=== PATIENT | male | born 1970 | race African-American/Black ===

== ENCOUNTER 2018-07-20 16:05 | Inpatient (IN) | payer OTHER ==
[2018-07-20 17:52] VITALS: BMI 30.7
--- NOTE | 2018-07-20 18:23 | HP ---
CIWA Score - CIWA Score Nausea/Vomitin-No Nausea/No Vomiting Muscle Tremors: 3 Anxiety: 2 Agitation: 3 Paroxysmal Sweats: 2 Orientation: 0-Oriented Tacttile Disturbances: 1-Very Mild Itch/Numbness Auditory Disturbances: 0-None Visual Disturbances: 1-Very Mild Sensitivity Headache: 0-None Present CIWA-Ar Total Score: 12 Admission ROS BHS - HPI Chief Complaint: "I need help with my A LOT of alcohol use" alcohol and benzo withdrawal symptoms Allergies/Adverse Reactions: Allergies Allergy/AdvReac Type Severity Reaction Status Date / Time No Known Allergies Allergy Verified 06/24/12 18:51 History of Present Illness: 47 yo male with hx nicotine, alcohol, klonopin, marijuana dependence is here seeking detox. Patient reports on going heroin( nasal) use, although linked to [facility]. [facility] [phone] on methadone 120 mg, last medicated today. Last detox three months ago [facility]. Reports the following PMHX: Asthma, DM II , HTN, bipolar and PTSD. Denies suicidal / homicidal ideation. Reports hx of suicide attempt at 21 yo while in residential. Denies hx of DTS, seizures or blackouts. Longest period of sobriety 11 years. Exam Limitations: No Limitations - Ebola screening Have you traveled outside of the country in the last 21 days: No (N) Have you had contact with anyone from an Ebola affected area: No Have you been sick,other than usual withdrawal symptoms: No Do you have a fever: No - Review of Systems Constitutional: Chills, Loss of Appetite, Changes in sleep EENT: reports: No Symptoms Reported Respiratory: reports: Cough Cardiac: reports: No Symptoms Reported GI: reports: Poor Appetite, Poor Fluid Intake, Other (hx of pancreatitis 2016) : reports: No Symptoms Reported Musculoskeletal: reports: No Symptoms Reported Integumentary: reports: No Symptoms Reported Neuro: reports: Weakness Endocrine: reports: Increased Thirst Hematology: reports: No Symptoms Reported Psychiatric: reports: Orientated x3, Anxious Other Systems: Reviewed and Negative Patient History - Patient Medical History Hx Anemia: No Hx Asthma: Yes (albuterol prn) Hx Chronic Obstructive Pulmonary Disease (COPD): No Hx Cancer: No Hx Cardiac Disorders: No Hx Congestive Heart Failure: No Hx Hypertension: Yes Hx Hypercholesterolemia: No Hx Pacemaker: No HX Cerebrovascular Accident: No Hx Seizures: No Hx Dementia: No Hx Diabetes: Yes (on metformin ) Hx Gastrointestinal Disorders: No Hx Liver Disease: No Hx Genitourinary Disorders: No Hx Sexually Transmitted Disorders: No Hx Renal Disease (ESRD): No Hx Thyroid Disease: No Hx Human Immunodeficiency Virus (HIV): No (last tested one year ago, neg results , declines testing at this time ) Hx Hepatitis C: No Hx Depression: No Hx Suicide Attempt: Yes (21 yo while in residential ) Hx Bipolar Disorder: Yes Hx Schizophrenia: Yes - Patient Surgical History Past Surgical History: No Hx Neurologic Surgery: No Hx Cataract Extraction: No Hx Cardiac Surgery: No Hx Lung Surgery: No Hx Breast Surgery: No Hx Breast Biopsy: No Hx Abdominal Surgery: No Hx Appendectomy: No Hx Cholecystectomy: No Hx Genitourinary Surgery: No Hx Section: No Hx Orthopedic Surgery: No Anesthesia Reaction: No - PPD History Previous Implant?: No (PPD+ 1989 tx INH and Rifampin) Documented Results: Positive w/o proof Implanted On Prior [facility] Admission?: No PPD to be Administered?: No - Smoking Cessation Smoking history: Current every day smoker Have you smoked in the past 12 months: Yes Aproximately how many cigarettes per day: 2 Hx Chewing Tobacco Use: No Initiated information on smoking cessation: Yes 'Breaking Loose' booklet given: 07/20/18 - Substance & Tx. History Hx Alcohol Use: Yes Hx Substance Use: Yes Substance Use Type: Alcohol, Marijuana, Tranquilizers Hx Substance Use Treatment: Yes ([facility] three months ago 04/2018) - Substances Abused Alcohol Route: Oral Frequency: Daily Amount used: 3 pints vodka Age of first use: 12 Date of Last Use: 07/20/18 Marijuana/Hashish Route: Smoking Frequency: 1-3 times last 30 days Amount used: 1 joint Age of first use: 13 Date of Last Use: 07/17/18 Benzodiazepine (Klonopin) Route: Oral Frequency: Daily Amount used: 1 -2 mg Age of first use: 47 Date of Last Use: 07/18/18 Family Disease History - Family Disease History Family Disease History: CA: Father ( Lung Cancer ) Admission Physical Exam BHS - Vital Signs Vital Signs: Vital Signs - 24 hr 07/20/18 17:48 Temperature 98.1 F Pulse Rate 70 Respiratory 18 Rate Blood Pressure 124/69 - Physical General Appearance: Yes: Disheveled, Mild Distress, Alcohol on Breath, Obese, Tremorous, Sweating, Anxious HEENTM: Yes: EOMI, Hearing grossly Normal, Normal ENT Inspection, Normocephalic , Normal Voice, MERLIN, Pharynx Normal, Tm's normal, Other (cheilithis) Respiratory: Yes: Chest Non-Tender, Lungs Clear, Normal Breath Sounds, No Respiratory Distress, No Accessory Muscle Use Neck: Yes: Within Normal Limits Breast: Yes: Breast Exam Deferred Cardiology: Yes: Regular Rhythm, Regular Rate Abdominal: Yes: Normal Bowel Sounds, Non Tender, Soft, Protuberent Genitourinary: Yes: Within Normal Limits Back: Yes: Normal Inspection Musculoskeletal: Yes: full range of Motion, Gait Steady, Pelvis Stable Extremities: Yes: Normal Capillary Refill, Normal Inspection, Normal Range of Motion, Tremors 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 NML intact, Fully Oriented, Alert, Motor Strength 5/5, Depressed Affect Integumentary: Yes: Normal Color, Warm, Moist Lymphatic: Yes: Within Normal Limits - Diagnostic (1) Alcohol dependence with withdrawal Current Visit: Yes Status: Acute Qualifiers: Complication of substance-induced condition: uncomplicated Qualified Code(s ): F10.230 - Alcohol dependence with withdrawal, uncomplicated (2) Sedative, hypnotic or anxiolytic dependence with withdrawal, uncomplicated Current Visit: Yes Status: Acute (3) Diabetes mellitus type 2, noninsulin dependent Current Visit: Yes Status: Chronic (4) Essential (primary) hypertension Current Visit: Yes Status: Chronic Comment: Reports non-adherent with medciations (5) Nicotine dependence Current Visit: Yes Status: Acute Qualifiers: Nicotine product type: cigarettes (6) Asthma Current Visit: Yes Status: Acute Qualifiers: Asthma severity: mild Asthma persistence: unspecified Asthma complication type: uncomplicated Qualified Code(s): J45.909 - Unspecified asthma, uncomplicated Cleared for Admission S - Detox or Rehab [facility] Level of Care: Medically Managed Detox Regimen/Protocol: Librium [facility] Breath Alcohol Content Breath Alcohol Content: 0.176 Urine Drug Screen - Results Drug Screen Negative: Yes Urine Drug Screen Results: THC-Marijuana, BZO-Benzodiazepines, MTD-Methadone
[2018-07-20] MEDS ORDERED: MAGNESIUM CITRATE 300 ML BOTTLE PO PRN (18:35)
[2018-07-20] MEDS ORDERED: chlordiazePOXIDE HCL 25 MG CAPSULE PO PRN (18:35)
[2018-07-20] MEDS ORDERED: LOPERAMIDE HCL 2 MG CAPSULE PO PRN (18:35)
[2018-07-20] MEDS ORDERED: P-EPHED 60MG/TRIPROLIDI 2.5MG TABLET PO PRN (18:35)
[2018-07-20] MEDS ORDERED: IBUPROFEN 400 MG TABLET (FP) PO PRN (18:35)
[2018-07-20] MEDS ORDERED: MAG HYDROX/AL HYDROX/SIMETH 30 ML UNIT-DOSE CUP PO PRN (18:35)
[2018-07-20] MEDS ORDERED: guaiFENesin/D-METHORPHAN HB 10 ML UNIT-DOSE CUPS PO PRN (18:35)
[2018-07-20] MEDS ORDERED: MAGNESIUM HYDROX 2400MG/30ML ORAL SUSPENSION 30 ML CUP PO PRN (18:35)
[2018-07-20] MEDS ORDERED: MENTHOL/PHENOL 1 EACH UD MM PRN (18:35)
[2018-07-20] MEDS ORDERED: ACETAMINOPHEN 325 MG TABLET (FP) PO PRN (18:35)
[2018-07-20] MEDS ORDERED: chlordiazePOXIDE HCL 25 MG CAPSULE PO ONE (18:40)
[2018-07-20] MEDS ORDERED: hydrOXYzine PAMOATE 50 MG CAPSULE (FP) PO PRN (18:40)
[2018-07-20] MEDS ORDERED: NICOTINE POLACRILEX 2 MG GUM BUC PRN (18:40)
[2018-07-20] MEDS ORDERED: MELATONIN 5 MG TABLETS PO PRN (22:00)
[2018-07-20] MEDS ORDERED: metFORMIN HCL 500 MG TABLET (FP) PO SCH (22:00)
[2018-07-20] MEDS: THIAMINE HCL 100 MG TABLET (FP) PO SCH (22:14)
[2018-07-20] MEDS: chlordiazePOXIDE HCL 25 MG CAPSULE PO SCH (22:14)
[2018-07-21 00:20] LABS: URINE APPEARANCE CLEAR; URINE BILIRUBIN NEGATIVE (<2.0 mg/dL); URINE COLOR YELLOW; URINE GLUCOSE (UA) NEGATIVE (NEGATIVE); URINE KETONE NEGATIVE (NEGATIVE); URINE LEUK ESTERASE TRACE (NEGATIVE); URINE NITRITE NEGATIVE (NEGATIVE); URINE PROTEIN NEGATIVE (NEGATIVE); URINE UROBILINOGEN 4.0 E.U/dl mg/dL (0.2-1.0)
[2018-07-21 00:27] LABS: EPI CELLS RARE /HPF (FEW); URINE MUCUS RARE
[2018-07-21] MEDS: chlordiazePOXIDE HCL 25 MG CAPSULE PO SCH ×4 (05:11→22:18)
[2018-07-21] MEDS: metFORMIN HCL 500 MG TABLET (FP) PO SCH ×2 (08:11→17:13)
[2018-07-21] MEDS: METHADONE HCL 40 MG DISPERSABLE TABLET PO SCH (10:06)
[2018-07-21] MEDS: NICOTINE 14 MG/24 HOURS TOPICAL PATCH TD SCH (10:07)
[2018-07-21] MEDS: PRENATAL VITAMINS W/ FOLIC ACID TABLET (FP) PO SCH (10:08)
[2018-07-21 10:27] LABS: HEMATOCRIT 39.4 % (35.4-49); HEMOGLOBIN 12.6 GM/dL (11.7-16.9); MCH 27.7 pg (25.7-33.7); MCHC 32.1 g/dl (32.0-35.9); MEAN CELL VOLUME 86.3 fl (80-96); MEAN PLT VOLUME 9.3 fl (7.5-11.1); PLATELET COUNT 233 K/MM3 (134-434); RBC 4.56 M/mm3 (4.00-5.60); RDW 16.7 % (11.9-15.9)
--- NOTE | 2018-07-21 10:51 | PN ---
S CIWA - CIWA Score Nausea/Vomitin Muscle Tremors: 1-None Visible, but [place] Anxiety: 3 Agitation: 1-Slight > Activity Paroxysmal Sweats: No Perspiration Orientation: 0-Oriented Tacttile Disturbances: 0-None Auditory Disturbances: 0-None Visual Disturbances: 0-None Headache: 3-Moderate CIWA-Ar Total Score: 10 BHS Progress Note (SOAP) Subjective: PATIENT IN DETOX FOR ETOH/BZO WITHDRAWAL SYMPTOMS. PATIENT C/O ANXIETY, NAUSEA/ DIARRHEA (ON AND OFF) AND HEADACHE. Objective: 07/21/18 10:48 Vital Signs Temperature 98.3 F 07/21/18 09:46 Pulse Rate 66 07/21/18 09:46 Respiratory Rate 18 07/21/18 09:46 Blood Pressure 137/93 07/21/18 09:46 O2 Sat by Pulse Oximetry (%) Laboratory Tests 07/20/18 07/20/18 07/21/18 00:00 19:39 05:11 WBC RBC Hgb Hct MCV MCH MCHC RDW Plt Count MPV POC Glucometer 111 90 Urine Color Yellow Urine Appearance Clear Urine pH 5.0 Ur Specific [place] 1.017 Urine Protein Negative Urine Glucose (UA) Negative Urine Ketones Negative Urine Blood 1+ H Urine Nitrite Negative Urine Bilirubin Negative Urine Urobilinogen 4.0 e.u/dl Ur Leukocyte Esterase Trace Urine WBC (Auto) 2 Urine RBC (Auto) 2 Ur Epithelial Cells Rare Urine Mucus Rare 07/21/18 07:00 WBC 5.0 RBC 4.56 Hgb 12.6 Hct 39.4 MCV 86.3 MCH 27.7 D MCHC 32.1 RDW 16.7 H Plt Count 233 MPV 9.3 POC Glucometer Urine Color Urine Appearance Urine pH Ur Specific [place] Urine Protein Urine Glucose (UA) Urine Ketones Urine Blood Urine Nitrite Urine Bilirubin Urine Urobilinogen Ur Leukocyte Esterase Urine WBC (Auto) Urine RBC (Auto) Ur Epithelial Cells Urine Mucus ALERT AND ORIENTED AMB AD LAUREN SKIN WARM AND DRY ANXIOUS BUT CALM Assessment: 07/21/18 10:49 ETOH WITHDRAWAL SYMPTOMS Plan: CONTINUE DETOX ORDERED ORAL FLUIDS ENCOURAGED CONTINUE APAP/MOTRIN PRN FOR HEADACHE REPEAT UA CONTINUE TO MONITOR CLINICALLY
[2018-07-21 11:16] LABS: ALBUMIN 3.7 g/dl (3.4-5.0); ALK PHOS 100 U/L (45-117); ANION GAP 10 MMOL/L (8-16); BILIRUBIN,TOTAL 0.5 mg/dL (0.2-1); BLOOD UREA NITROGEN 18 mg/dL (7-18); CALCIUM 8.6 mg/dL (8.5-10.1); CHLORIDE 102 mmol/L (98-107); CO2 28 mmol/L (21-32); CREATININE 0.8 mg/dL (0.55-1.3); GLUCOSE,RANDOM 129 mg/dL (74-106); POTASSIUM 4.3 mmol/L (3.5-5.1); SGOT/AST 19 U/L (15-37); SGPT/ALT 29 U/L (13-61); SODIUM 140 mmol/L (136-145); TOT PROT 7.3 g/dl (6.4-8.2)
--- NOTE | 2018-07-21 11:59 | EKG ---
Test Reason : Blood Pressure : / mmHG Vent. Rate : 064 BPM Atrial Rate : 064 BPM P-R Int : 176 ms QRS Dur : 090 ms QT Int : 428 ms P-R-T Axes : 045 038 032 degrees QTc Int : 441 ms POOR DATA QUALITY, INTERPRETATION MAY BE ADVERSELY AFFECTED NORMAL SINUS RHYTHM NORMAL ECG NO PREVIOUS ECGS AVAILABLE Confirmed by THIEN CHAVIRA MD ([id number]) on 07/21/2018 11:59:17 AM Referred By: Confirmed By:THIEN CHAVIRA MD
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
--- NOTE | 2018-07-21 21:40 | PN ---
BHS Progress Note Note: 150/90 p53 asymtomatic due for librium at 10pm increase PO fluids continue to monitor
[2018-07-21] MEDS: THIAMINE HCL 100 MG TABLET (FP) PO SCH (22:18)
[2018-07-21 23:09] LABS: URINE APPEARANCE CLEAR; URINE BILIRUBIN NEGATIVE (<2.0 mg/dL); URINE COLOR LTYELLOW; URINE GLUCOSE (UA) NEGATIVE (NEGATIVE); URINE KETONE NEGATIVE (NEGATIVE); URINE LEUK ESTERASE NEGATIVE (NEGATIVE); URINE NITRITE NEGATIVE (NEGATIVE); URINE PROTEIN NEGATIVE (NEGATIVE); URINE UROBILINOGEN NEGATIVE mg/dL (0.2-1.0)
[2018-07-21 23:13] LABS: EPI CELLS RARE /HPF (FEW)
[2018-07-22] MEDS: chlordiazePOXIDE HCL 25 MG CAPSULE PO SCH ×3 (05:23→17:29)
[2018-07-22] MEDS: METHADONE HCL 40 MG DISPERSABLE TABLET PO SCH (05:23)
[2018-07-22] MEDS: metFORMIN HCL 500 MG TABLET (FP) PO SCH ×2 (06:16→17:28)
[2018-07-22] MEDS: PRENATAL VITAMINS W/ FOLIC ACID TABLET (FP) PO SCH (10:06)
[2018-07-22] MEDS: NICOTINE 14 MG/24 HOURS TOPICAL PATCH TD SCH (10:06)
--- NOTE | 2018-07-22 11:14 | PN ---
S CIWA - CIWA Score Nausea/Vomitin-No Nausea/No Vomiting Muscle Tremors: None Anxiety: 3 Agitation: 3 Paroxysmal Sweats: 2 Orientation: 0-Oriented Tacttile Disturbances: 0-None Auditory Disturbances: 0-None Visual Disturbances: 0-None Headache: 0-None Present CIWA-Ar Total Score: 8 BHS Progress Note (SOAP) Subjective: PATIENT FEELING ANXIOUS AND IRRITABLE WAITING TO SPEAK TO [employer]. Objective: 07/22/18 11:11 Laboratory Tests 07/20/18 07/20/18 07/21/18 00:00 19:39 05:11 WBC RBC Hgb Hct MCV MCH MCHC RDW Plt Count MPV Sodium Potassium Chloride Carbon Dioxide Anion Gap BUN Creatinine Creat Clearance w eGFR POC Glucometer 111 90 Random Glucose Calcium Total Bilirubin AST ALT Alkaline Phosphatase Total Protein Albumin Urine Color Yellow Urine Appearance Clear Urine pH 5.0 Ur Specific [place] 1.017 Urine Protein Negative Urine Glucose (UA) Negative Urine Ketones Negative Urine Blood 1+ H Urine Nitrite Negative Urine Bilirubin Negative Urine Urobilinogen 4.0 e.u/dl Ur Leukocyte Esterase Trace Urine WBC (Auto) 2 Urine RBC (Auto) 2 Ur Epithelial Cells Rare Urine Mucus Rare RPR Titer 07/21/18 07/21/18 07/21/18 07:00 07:00 07:00 WBC 5.0 RBC 4.56 Hgb 12.6 Hct 39.4 MCV 86.3 MCH 27.7 D MCHC 32.1 RDW 16.7 H Plt Count 233 MPV 9.3 Sodium 140 Potassium 4.3 Chloride 102 Carbon Dioxide 28 Anion Gap 10 BUN 18 Creatinine 0.8 Creat Clearance w eGFR > 60 POC Glucometer Random Glucose 129 H Calcium 8.6 Total Bilirubin 0.5 AST 19 ALT 29 Alkaline Phosphatase 100 Total Protein 7.3 Albumin 3.7 Urine Color Urine Appearance Urine pH Ur Specific [place] Urine Protein Urine Glucose (UA) Urine Ketones Urine Blood Urine Nitrite Urine Bilirubin Urine Urobilinogen Ur Leukocyte Esterase Urine WBC (Auto) Urine RBC (Auto) Ur Epithelial Cells Urine Mucus RPR Titer Nonreactive 07/21/18 07/21/18 07/22/18 16:16 17:24 05:23 WBC RBC Hgb Hct MCV MCH MCHC RDW Plt Count MPV Sodium Potassium Chloride Carbon Dioxide Anion Gap BUN Creatinine Creat Clearance w eGFR POC Glucometer 132 114 Random Glucose Calcium Total Bilirubin AST ALT Alkaline Phosphatase Total Protein Albumin Urine Color Ltyellow Urine Appearance Clear Urine pH 5.0 Ur Specific [place] 1.014 Urine Protein Negative Urine Glucose (UA) Negative Urine Ketones Negative Urine Blood 1+ H Urine Nitrite Negative Urine Bilirubin Negative Urine Urobilinogen Negative Ur Leukocyte Esterase Negative Urine WBC (Auto) 1 Urine RBC (Auto) <1 Ur Epithelial Cells Rare Urine Mucus RPR Titer Vital Signs Temperature 96.9 F L 07/22/18 10:16 Pulse Rate 53 L 07/22/18 10:16 Respiratory Rate 20 07/22/18 10:16 Blood Pressure 152/95 07/22/18 10:16 O2 Sat by Pulse Oximetry (%) 07/22/18 11:11 SKIN + WARM AND VISIBLE MOISTURE ALERT AND ORIENTED AMB AD LAUREN NO EDEMA ANXIOUS/IRRITABLE Assessment: 07/22/18 11:12 HTN HISTORY OF BIPOLAR DISORDER Plan: CONTINUE DETOX ENCOURAGE ORAL FLUIDS PSYCH CONSULT PATIENT REQUESTED FOR HIS SEROQUEL MEDICATION FOR H/O BIPOLAR DISORDER WILL ORDER CLONIDINE 0.1MG PO DAILY FOR ELEVATED BP CONTINUE TO MONITOR
[2018-07-22] MEDS: cloNIDine HCL 0.1 MG TABLET PO SCH (11:35)
[2018-07-22] MEDS ORDERED: ALBUTEROL SO4 8 GM HFA INHALER IH SCH (14:30)
[2018-07-22] MEDS ORDERED: ALBUTEROL SO4 8 GM HFA INHALER IH PRN (14:41)
--- NOTE | 2018-07-22 17:36 | PN ---
Psychiatric Progress Note Vital Signs: Vital Signs Period Temp Pulse Resp BP Sys/Osman Pulse Ox Last 24 Hr 96.9 F-98.3 F 53-59 16-20 131-152/86-95 Date of Session: 07/22/18 Chief Complaint:: " i can't sleep." HPI: Patient admitted to for alcohol, benzodiazepine and marijuana dependence. ROS: Past history of pancreatitis,hypertension,diabetes mellitus,bronchial asthma and obesity. Current Medications: Active Medications Generic Name Dose Route Start Last Admin Trade Name Freq PRN Reason Stop Dose Admin Acetaminophen 650 mg 07/20/18 18:35 Tylenol - PO Q4H PRN FEVER Al Hydroxide/Mg Hydroxide 30 ml 07/20/18 18:35 Mylanta Oral Suspension - PO Q6H PRN DYSPEPSIA Albuterol Sulfate 2 puff 07/22/18 14:41 Ventolin Hfa Inhaler - IH Q4H PRN WHEEZING Budesonide/Formoterol Fumarate 2 puff 07/22/18 22:00 Symbicort 80/4.5mcg - IH BID BRIANDA Chlordiazepoxide HCl 15 mg 07/22/18 23:00 Librium - PO 07/23/18 17:01 V2D-PNT BRIANDA Chlordiazepoxide HCl 25 mg 07/20/18 18:35 Librium - PO 07/23/18 18:34 Q4H PRN WITHDRAWAL(CONT SUBST) Chlordiazepoxide HCl 10 mg 07/23/18 23:00 Librium - PO 07/24/18 17:01 D9B-LIL BRIANDA Clonidine 0.1 mg 07/22/18 10:30 07/22/18 11:35 Catapres - PO 0.1 mg DAILY BRIANDA Administration Eucalyptus/Menthol/Phenol/Sorbitol 1 each 07/20/18 18:35 Cepastat Lozenge - MM Q4H PRN SORE THROAT Guaifenesin 10 ml 07/20/18 18:35 Robitussin Dm - PO Q6H PRN COUGH Hydroxyzine Pamoate 50 mg 07/20/18 18:40 Vistaril - PO Q4H PRN AGITATION Ibuprofen 400 mg 07/20/18 18:35 Motrin - PO Q6H PRN PAIN LEVEL 4-6 Loperamide HCl 4 mg 07/20/18 18:35 Imodium - PO Q6H PRN DIARRHEA Magnesium Citrate 300 ml 07/20/18 18:35 Citroma - PO Q48H PRN CONSTIPATION Magnesium Hydroxide 30 ml 07/20/18 18:35 Milk Of Magnesia - PO DAILY PRN CONSTIPATION Melatonin 5 mg 07/20/18 22:00 Melatonin PO HS PRN INSOMNIA Metformin HCl 500 mg 07/21/18 07:00 07/22/18 17:28 Glucophage - PO 500 mg BID@0700,1630 BRIANDA Administration Methadone HCl 120 mg 07/21/18 10:00 07/22/18 05:23 Dolophine - PO 07/25/18 09:44 120 mg DAILY@0600 BRIANDA Administration Nicotine 14 mg 07/21/18 10:00 07/22/18 10:06 Nicoderm Patch - TD Not Given DAILY BRIANDA Nicotine Polacrilex 2 mg 07/20/18 18:40 Nicorette Gum - BUC Q2H PRN NICOTINE REPLACEMENT RX Multivit/Folic Acid/Iron 1 tab 07/21/18 10:00 07/22/18 10:06 Vitamins ([facility]) - PO 1 tab DAILY BRIANDA Administration Pseudoephedrine/Triprolidine 1 combo 07/20/18 18:35 Actifed - PO TID PRN NASAL CONGESTION Thiamine HCl 100 mg 07/20/18 22:00 07/21/18 22:18 Vitamin B1 - PO 100 mg HS BRIANDA Administration Medication(s) Change(s): Yes. Will add Seroquel 50mg qhs Current Side Effect: No Lab tests ordered: No Lab tests reviewed: Yes Provider note:: Chart reviewed. Dr. Steen noted read and appreciated. Patient requesting seroquel for insomnia. As per Dr. Steen note patient has not accepted seroquel in 3-4 months. Will order seroquel 50mg qhs. Psychoeducation and sleep hygiene discussed. Benefits and side effects discussed. Verbal consent given. Total face to face time:: 25 Mental Status Exam - Mental Status Exam Alert and Oriented to: Time, Place, Person Cognitive Function: Good Patient Appearance: Well Groomed Mood: Hopeful Affect: Appropriate, Mood Congruent Patient Behavior: Appropriate, Cooperative Speech Pattern: Clear, Appropriate Voice Loudness: Normal Thought Process: Intact, Goal Oriented Thought Disorder: Not Present Hallucinations: Denies Suicidal Ideation: Denies Homicidal Ideation: Denies Insight/Judgement: Poor Sleep: Poorly Appetite: Fair Muscle strength/Tone: Normal Gait/Station: Normal Psychiatric Treatment Plan - Problem List (1) Alcohol dependence with withdrawal Current Visit: Yes Qualifiers: Complication of substance-induced condition: uncomplicated Qualified Code(s ): F10.230 - Alcohol dependence with withdrawal, uncomplicated (2) Cannabis dependence Current Visit: Yes (3) Sedative, hypnotic or anxiolytic dependence with withdrawal, uncomplicated Current Visit: Yes (4) Insomnia Current Visit: Yes (5) Nicotine dependence Current Visit: Yes Qualifiers: Nicotine product type: cigarettes (6) Substance induced mood disorder Current Visit: Yes
[2018-07-22] MEDS ORDERED: BUDESONIDE/FORMETEROL FUMARATE 80/4.5 mcg INHALER IH SCH (22:00)
[2018-07-22] MEDS: THIAMINE HCL 100 MG TABLET (FP) PO SCH (22:03)
[2018-07-22] MEDS: chlordiazePOXIDE 5 MG CAPSULE PO SCH (22:04)
[2018-07-22] MEDS: QUEtiapine FUMARATE 50 MG TABLET PO SCH (22:04)
[2018-07-22] MEDS: BUDESONIDE/FORMETEROL FUMARATE 80/4.5 mcg INHALER IH SCH (22:04)
[2018-07-23] MEDS: chlordiazePOXIDE 5 MG CAPSULE PO SCH ×3 (05:32→17:21)
[2018-07-23] MEDS: METHADONE HCL 40 MG DISPERSABLE TABLET PO SCH (05:32)
[2018-07-23] MEDS: metFORMIN HCL 500 MG TABLET (FP) PO SCH ×2 (07:12→17:21)
[2018-07-23] MEDS: PRENATAL VITAMINS W/ FOLIC ACID TABLET (FP) PO SCH (10:27)
[2018-07-23] MEDS: BUDESONIDE/FORMETEROL FUMARATE 80/4.5 mcg INHALER IH SCH ×2 (10:27→22:30)
[2018-07-23] MEDS: NICOTINE 14 MG/24 HOURS TOPICAL PATCH TD SCH (10:27)
[2018-07-23] MEDS: cloNIDine HCL 0.1 MG TABLET PO SCH (10:28)
--- NOTE | 2018-07-23 12:34 | PN ---
S Progress Note (SOAP) Subjective: Interrupted sleep Objective: 07/23/18 12:27 Last Vital Signs Temp Pulse Resp BP Pulse Ox 98.0 F 64 18 123/82 07/23/18 09:57 07/23/18 09:57 07/23/18 09:57 07/23/18 09:57 Laboratory Tests 07/20/18 07/20/18 07/21/18 00:00 19:39 05:11 WBC RBC Hgb Hct MCV MCH MCHC RDW Plt Count MPV Sodium Potassium Chloride Carbon Dioxide Anion Gap BUN Creatinine Creat Clearance w eGFR POC Glucometer 111 90 Random Glucose Calcium Total Bilirubin AST ALT Alkaline Phosphatase Total Protein Albumin Urine Color Yellow Urine Appearance Clear Urine pH 5.0 Ur Specific [place] 1.017 Urine Protein Negative Urine Glucose (UA) Negative Urine Ketones Negative Urine Blood 1+ H Urine Nitrite Negative Urine Bilirubin Negative Urine Urobilinogen 4.0 e.u/dl Ur Leukocyte Esterase Trace Urine WBC (Auto) 2 Urine RBC (Auto) 2 Ur Epithelial Cells Rare Urine Mucus Rare RPR Titer 07/21/18 07/21/18 07/21/18 07:00 07:00 07:00 WBC 5.0 RBC 4.56 Hgb 12.6 Hct 39.4 MCV 86.3 MCH 27.7 D MCHC 32.1 RDW 16.7 H Plt Count 233 MPV 9.3 Sodium 140 Potassium 4.3 Chloride 102 Carbon Dioxide 28 Anion Gap 10 BUN 18 Creatinine 0.8 Creat Clearance w eGFR > 60 POC Glucometer Random Glucose 129 H Calcium 8.6 Total Bilirubin 0.5 AST 19 ALT 29 Alkaline Phosphatase 100 Total Protein 7.3 Albumin 3.7 Urine Color Urine Appearance Urine pH Ur Specific [place] Urine Protein Urine Glucose (UA) Urine Ketones Urine Blood Urine Nitrite Urine Bilirubin Urine Urobilinogen Ur Leukocyte Esterase Urine WBC (Auto) Urine RBC (Auto) Ur Epithelial Cells Urine Mucus RPR Titer Nonreactive 07/21/18 07/21/18 07/22/18 16:16 17:24 05:23 WBC RBC Hgb Hct MCV MCH MCHC RDW Plt Count MPV Sodium Potassium Chloride Carbon Dioxide Anion Gap BUN Creatinine Creat Clearance w eGFR POC Glucometer 132 114 Random Glucose Calcium Total Bilirubin AST ALT Alkaline Phosphatase Total Protein Albumin Urine Color Ltyellow Urine Appearance Clear Urine pH 5.0 Ur Specific [place] 1.014 Urine Protein Negative Urine Glucose (UA) Negative Urine Ketones Negative Urine Blood 1+ H Urine Nitrite Negative Urine Bilirubin Negative Urine Urobilinogen Negative Ur Leukocyte Esterase Negative Urine WBC (Auto) 1 Urine RBC (Auto) <1 Ur Epithelial Cells Rare Urine Mucus RPR Titer 07/22/18 07/23/18 16:23 05:31 WBC RBC Hgb Hct MCV MCH MCHC RDW Plt Count MPV Sodium Potassium Chloride Carbon Dioxide Anion Gap BUN Creatinine Creat Clearance w eGFR POC Glucometer 236 223 Random Glucose Calcium Total Bilirubin AST ALT Alkaline Phosphatase Total Protein Albumin Urine Color Urine Appearance Urine pH Ur Specific [place] Urine Protein Urine Glucose (UA) Urine Ketones Urine Blood Urine Nitrite Urine Bilirubin Urine Urobilinogen Ur Leukocyte Esterase Urine WBC (Auto) Urine RBC (Auto) Ur Epithelial Cells Urine Mucus RPR Titer Labs reviewed: UA shows microscopic hematuria Assessment: 07/23/18 12:29 Withdrawal sxs Noted with persistent microscopic hematuria Plan: Continue detox Persistent microscopic hematuria: encouraged PO water intake, patient informed of result and instructed to follow up with his PCP within 1 week post discharge for further evaluation and for urology referral. Patient verbalized understanding.
[2018-07-23] MEDS: chlordiazePOXIDE HCL 10 MG CAPSULE PO SCH (22:30)
[2018-07-23] MEDS: THIAMINE HCL 100 MG TABLET (FP) PO SCH (22:30)
[2018-07-23] MEDS: QUEtiapine FUMARATE 50 MG TABLET PO SCH (22:30)
[2018-07-24] MEDS: METHADONE HCL 40 MG DISPERSABLE TABLET PO SCH (05:50)
[2018-07-24] MEDS: chlordiazePOXIDE HCL 10 MG CAPSULE PO SCH (05:50)
[2018-07-24] MEDS: metFORMIN HCL 500 MG TABLET (FP) PO SCH (06:03)
[2018-07-24 06:42] VITALS: BP 121/78; PULSE 52; TEMP 97.8
--- NOTE | 2018-07-24 08:39 | DS ---
[facility] Detox Discharge Summary Admission Date: 07/20/18 Discharge Date: 07/24/18 - History Present History: Alcohol Dependence Additional Comments: Patient to follow up with primary medical provider upon discharge in 1 - 2 weeks. - Physical Exam Results Vital Signs: Vital Signs Temperature 97.8 F 07/24/18 06:41 Pulse Rate 52 L 07/24/18 06:41 Respiratory Rate 18 07/24/18 06:41 Blood Pressure 121/78 07/24/18 06:41 O2 Sat by Pulse Oximetry (%) - Treatment Hospital Course: Detox Protocol Followed, Detoxed Safely, Responded well, Discharged Condition Good Patient has Accepted a Rehab Referral to: follow up with out patient programs - Medication Discharge Medications: Ambulatory Orders Metformin HCl [Glucophage] 500 mg PO BID 07/20/18 Albuterol Sulfate Inhaler - [Ventolin Hfa Inhaler -] 2 inh PO Q4H 07/22/18 Budesonide/Formeterol Fumarate [SYMBICORT 80/4.5mcg -] 2 inh PO BID 07/22/18 - Diagnosis (1) Alcohol dependence with withdrawal Status: Acute Qualifiers: Complication of substance-induced condition: uncomplicated Qualified Code(s ): F10.230 - Alcohol dependence with withdrawal, uncomplicated (2) Sedative, hypnotic or anxiolytic dependence with withdrawal, uncomplicated Status: Acute (3) Diabetes mellitus type 2, noninsulin dependent Status: Chronic (4) Essential (primary) hypertension Status: Chronic (5) Nicotine dependence Status: Chronic Qualifiers: Nicotine product type: cigarettes (6) Asthma Status: Chronic Qualifiers: Asthma severity: mild Asthma persistence: unspecified Asthma complication type: uncomplicated Qualified Code(s): J45.909 - Unspecified asthma, uncomplicated - AMA Did Patient Leave Against Medical Advice: No
== END 2018-07-24 06:25 | disposition home or self-care (01) | DRG 775 ==
LOC: YASAS 16:05 → Y3N 19:48
PROC: HZ2ZZZZ Detoxification Services for Substance Abuse Treatment (ICD-10-PCS; principal; 2018-07-20)
DX: F10.230 Alcohol dependence with withdrawal, uncomplicated (principal); F13.230 Sedative, hypnotic or anxiolytic dependence with withdrawal, uncomplicated; F12.20 Cannabis dependence, uncomplicated; F17.210 Nicotine dependence, cigarettes, uncomplicated; F19.24 Other psychoactive substance dependence with psychoactive substance-induced mood disorder; F31.9 Bipolar disorder, unspecified; F20.9 Schizophrenia, unspecified; F43.10 Post-traumatic stress disorder, unspecified; I10 Essential (primary) hypertension; E11.9 Type 2 diabetes mellitus without complications; Z79.84 Long term (current) use of oral hypoglycemic drugs; J45.909 Unspecified asthma, uncomplicated; G47.00 Insomnia, unspecified; R31.29 Other microscopic hematuria; Z91.5 Personal history of self-harm
CPT/HCPCS: 36415; 71046-TC-FY; 80053; 81003; 81015; 82962; 85027; 86593; 93005; 93010; J0735